=== PATIENT | female | born 1985 | race Caucasian/White ===

== ENCOUNTER → 2016-09-25 | Outpatient (CLI) | payer OTHER ==
[~2016-09-25] MED LIST: IOHEXOL 240 MG/ML 50ML VIAL. IV ONE; IOHEXOL 240 MG/ML 50ML VIAL. PO ONE; IOHEXOL 300 MG/ML 75 ML VIAL IV ONE
--- NOTE | 2016-09-25 10:43 | RAD ---
Indication abdominal pain. Duration 2 months Axial images of the abdomen and pelvis were obtained. Both IV and oral contrast were administered. 75 cc of Omnipaque 300 was administered intravenously. No prior imaging is available. The lung bases are clear. Right breast implant is noted. The liver and spleen appear unremarkable and the gallbladder appears grossly normal. No pancreatic adrenal or renal pathology is seen. No acute finding is apparent in the abdomen. In the pelvis no acute or significant finding is seen. An IUD is noted. IMPRESSION: No acute or significant finding seen in the abdomen or pelvis PQRS Compliance Statement: One or more of the following individualized dose reduction techniques were utilized for this examination: 1. Automated exposure control 2. Adjustment of the mA and/or kV according to patient size 3. Use of iterative reconstruction technique
== END | disposition home or self-care (01) ==
LOC: CT 08:36
PROVIDERS: ATTEND Physician Assistant
DX: R10.30 Lower abdominal pain, unspecified (principal)
CPT/HCPCS: 74177; Q9966; Q9967